=== PATIENT | female | born 1935 | race Caucasian/White ===

== ENCOUNTER → 2016-07-08 | Day surgery (SDC) | payer MEDICARE, BC ==
[~2016-07-08] MED LIST: ESTRACE0.5 MG OR; LEVOTHYROXIN0.125 MG PO
== END ==
LOC: CATHLAB 07:46
PROVIDERS: Internal Medicine
PROC: 0JH632Z Insertion of Monitoring Device into Chest Subcutaneous Tissue and Fascia, Percutaneous Approach (ICD-10-PCS; principal; 2016-07-08 08:30)
DX: I49.5 Sick sinus syndrome (principal); R55 Syncope and collapse
CPT/HCPCS: C1764; G0463